=== PATIENT | male | born 2000 | race African-American/Black ===

== ENCOUNTER 2018-01-11 11:01 | Emergency (ER) | payer OTHER ==
[~2018-01-11] VITALS: Ht 175.3 cm; Wt 83.0 kg
[~2018-01-11 11:01] MED LIST: ACETAMINOPHEN-1 EAC1 PO; AMOXICILLIN 50500 M1 PO; ATROVENT15 ML NS; FLEXERIL PO; FLONASE 0.05%50 MCG NASAL; IBUPROFEN 400400 M1 PO; IBUPROFEN 600600 M1 PO; IBUPROFEN 800800 M1 PO; NAPROSYN375 MG PO; NOHOMEMEDICATIONS; TORADOL 10 MG T10 MG PO; TYLENOL W/CODEI1 TA2 PO; VENTOLIN HFA 1818 GM INH; VENTOLIN HFA INH8 GM INH; ZPAK PO
[2018-01-11 12:12] VITALS: BP 115/55
== END 2018-01-11 12:13 | disposition home or self-care (01) ==
LOC: M.ERS 11:01
DX: Z20.2 Contact with and (suspected) exposure to infections with a predominantly sexual mode of transmission (principal); J45.909 Unspecified asthma, uncomplicated

== ENCOUNTER 2018-05-25 10:51 | Emergency (ER) | payer OTHER ==
[~2018-05-25] VITALS: Ht 175.3 cm; Wt 86.2 kg
[2018-05-25 11:05] VITALS: BP 123/55
[2018-05-25 11:06] LABS: URINE BILIRUBIN NEGATIVE (Negative); URINE BLOOD NEGATIVE (Negative); URINE CLARITY CLEAR; URINE COLOR YELLOW; URINE GLUCOSE-RANDOM NEGATIVE (Negative); URINE KETONES NEGATIVE (Negative); URINE LEUKOCYTES-REFLEX NEGATIVE (Negative); URINE NITRITE-REFLEX NEGATIVE (Negative); URINE PROTEIN NEGATIVE (Negative)
== END 2018-05-25 11:28 | disposition home or self-care (01) ==
LOC: M.ERS 10:51
PROVIDERS: Physician Assistant
DX: Z20.2 Contact with and (suspected) exposure to infections with a predominantly sexual mode of transmission (principal); J45.909 Unspecified asthma, uncomplicated

== ENCOUNTER 2018-11-25 15:41 | Emergency (ER) | payer OTHER ==
[~2018-11-25] VITALS: Ht 175.3 cm; Wt 86.2 kg
[2018-11-25 16:11] LABS: URINE BILIRUBIN NEGATIVE (Negative); URINE BLOOD NEGATIVE (Negative); URINE CLARITY CLEAR; URINE COLOR YELLOW; URINE GLUCOSE-RANDOM NEGATIVE (Negative); URINE KETONES NEGATIVE (Negative); URINE LEUKOCYTES-REFLEX NEGATIVE (Negative); URINE NITRITE-REFLEX NEGATIVE (Negative); URINE PROTEIN NEGATIVE (Negative); URINE SPECIFIC GRAVITY 1.015 (1.005-1.030)
[2018-11-25 16:57] VITALS: BP 133/70
== END 2018-11-25 17:00 | disposition home or self-care (01) ==
LOC: M.ERS 15:41
PROVIDERS: Nurse Practitioner Family
DX: Z20.2 Contact with and (suspected) exposure to infections with a predominantly sexual mode of transmission (principal); J45.909 Unspecified asthma, uncomplicated